=== PATIENT | female | born 1980 | race Caucasian/White ===

== ENCOUNTER → 2018-08-24 | Outpatient (CLI) | payer BC ==
--- NOTE | 2018-08-24 13:29 | MR ---
EXAMINATION TYPE: MR shoulder RT wo con DATE OF EXAM: 08/24/2018 COMPARISON: NONE HISTORY: Pain in right shoulder, limited movement for one year per patient with difficulty raising ov erhead after throwing softball injury. TECHNIQUE: Multiplanar, multisequence imaging of the right shoulder is performed without contrast. FINDINGS: Rotator Cuff: Distal supraspinatus and infraspinatus tendons are intact. Distal subscapularis tendon is intact. Rotator cuff muscle bulk is preserved. Acromioclavicular Joint: There is moderate capsular hypertrophy superiorly. There is type II downslop ing acromion with loss of underlying fat paracoronal image 13. Glenohumeral Joint: Small to moderate size narrowing is present with small to moderate size joint eff usion. Labrum: The labrum appears grossly intact given limitation of non-arthrogram study. Biceps Tendon: Focus of increased signal intracapsular portion long head biceps tendon is seen parasa gittal images 13 consistent with focal tendinosis/partial tear. Bone marrow signal: Overall heterogeneity consistent with red marrow reconversion is seen. Tiny subch ondral cyst noted superolateral humeral head paracoronal image 16. Other: No additional significant abnormality is appreciated. IMPRESSION: 1. Type II downsloping acromion with suggestion of underlying impingement. Correlate clinically. 2. No rotator cuff or labral tear is seen. 3. Focal tendinosis/partial tear intracapsular portion long head of biceps tendon. 4. Mild to moderate degenerative changes throughout right shoulder as detailed above.
== END | disposition home or self-care (01) ==
LOC: RADMRIMAIN 12:24
PROVIDERS: ATTEND Family Medicine
DX: M19.011 Primary osteoarthritis, right shoulder (principal); M75.111 Incomplete rotator cuff tear or rupture of right shoulder, not specified as traumatic; M75.21 Bicipital tendinitis, right shoulder